=== PATIENT | male | born 1985 | race Hispanic/Latino ===

== ENCOUNTER 2016-05-18 18:31 | Emergency (ER) | payer OTHER ==
[~2016-05-18] VITALS: Ht 160 cm; Wt 100.0 kg
[2016-05-18 18:38] VITALS: BP 127/77; PULSE 63; RESP 12; O2SAT 100
[2016-05-18 20:05] VITALS: BP 127/77; PULSE 63; RESP 12; O2SAT 100
[2016-05-18] MEDS ORDERED: HYDROcodone-APAP 5-325 mg Tablet PO ONE (20:30)
--- NOTE | 2016-05-18 20:33 | ED.REPORT ---
HPI-Dental/Mouth Prob Date of Service May 18, 2016 ED Provider: Madhavi Prabhakar Nursing Notes Stated Complaint: TOOTH PAIN Chief Complaint: Dental Nursing Notes Reviewed: Yes Allergies: Coded Allergies: No Known Allergies (Unverified Allergy, Unknown, 03/07/16) Scheduled Penicillin V Potassium (Penicillin V Potassium) 500 Mg Tablet 500 MG PO BID Scheduled PRN Hydrocodone-Acetaminophen 5-325 mg (Hydrocodone-Acetaminophen 5-325 mg) 1 Each Tablet 1 TABLET PO Q4H PRN PRN For Pain Naproxen (Naproxen) 500 Mg Tab 500 MG PO BID PRN PRN For Pain General Time Seen by MD: 19:51 Chief Complaint Gum swelling, Tooth pain right upper incisor pain, infection to gum Hx Obtained From: Patient, Spouse Arrived By: Walk-in Onset Occurred: 3 days ago Context of Onset: Work-related (tooth fracture, repair not completed) Symptom Duration: Since onset Caused by: Blunt trauma Location: : Gum maxillary right: Tooth upper R lat incisor Quality: Aching Radiation: : Does not radiate Severity: Current: Moderate Severity: Maximum: Severe Associated with: Denies: Can't fully open mouth, Chills, Fever, Nausea Pertinent Negative: Pt denies other symptoms Exacerbated by: Heat, Cold, Chewing Pertinent Negative: Relieved by nothing Recent Healthcare: No recent doctor visit Similar Sx Previous: Yes Past Medical History Past Medical History Denies Past Surgical History Denies Smoking History Smoker Current Status UNK Social History Drug Use: Denies drug use Ambulatory Status Independent Review of Systems Basic Review of Systems Eyes: Vision NL, No discharge Cardiovascular: No palpitations Musculoskeletal: No extremity pain Hematologic: No bleeding, No bruising Skin: No bruising, No rash, No itch Allergy / Immune: No allergy Neurologic: NL mental status, No weakness, No numbness Psychiatric: Normal thought content Constitutional: Denies: Fatigue, Fever Ears / Nose / Throat: Reports: Toothache Respiratory: Denies: Non-productive cough GI: Denies: Abdominal pain Complete sys rev & neg: except as marked. Physical Exam Initial Vital Signs Vital Signs (First) Date Time Temp Pulse Resp B/P Pulse Ox O2 Delivery O2 Flow Rate FiO2 05/18/16 18:38 36.6 63 12 127/77 100 Room Air Initial VS: Reviewed General/Constitutional: Well-developed, Well-nourished Head / Eyes: Atraumatic, Normocephalic, PERRL Respiratory: No respiratory distress Lymphatic: No lymphadenopathy Extremities: No swelling, No tenderness Skin: Warm, Dry, No cyanosis Neurologic: Alert, Oriented, Nonfocal Psychiatric: Mood/affect normal, Behavior normal, Normal thought content ENT: Atraumatic, Airway patent, Mucous membranes moist, Pharynx NL, No pooling of secretions, No trismus, No facial swelling Dental / Gums: Positive: Dental abscess (right incisor buccal aspect gums, non draining), Gum swelling, Gum tenderness, Tooth fracture (tempory crown glued on) Neck: Atraumatic, Supple, No meningismus, Full range of motion, No adenopathy Discharge & Departure Primary Impression: Dental abscess Disposition: Home Discharge Condition Condition: Improved Patient Instructions: Dental Abscess (ED) Additional Instructions: Take your medications as prescribed. You should start to feel better in the next 3 to 5 days. It is important to find a dentist to work on your teeth or the abscess will come back. Please see your dentist in the next 2 weeks. Return to Urgent Care or the ER if you feel that you are getting worse or any other problems. Referrals: NOPCP (PCP) EDSupervising Provider for APC: Jae Ware MD, Lora L ARNP May 18, 2016 20:33
[2016-05-18] MEDS ORDERED: PENI500T PO (20:35)
[2016-05-18] MEDS ORDERED: HYDR-4003 PO (20:35)
[2016-05-18] MEDS ORDERED: NPR500T PO (20:35)
[2016-05-18 20:47] VITALS: BP 131/83; PULSE 67; RESP 20; O2SAT 100
== END 2016-05-18 20:54 | disposition home or self-care (01) ==
LOC: SED 18:31
DX: K04.7 Periapical abscess without sinus (principal); S02.5XXS Fracture of tooth (traumatic), sequela; W50.0XXS Accidental hit or strike by another person, sequela; Y92.59 Other trade areas as the place of occurrence of the external cause; Y93.9 Activity, unspecified; Y99.0 Civilian activity done for income or pay; F17.200 Nicotine dependence, unspecified, uncomplicated

== ENCOUNTER 2016-12-29 15:10 | Emergency (ER) | payer OTHER ==
[~2016-12-29] VITALS: Ht 160 cm; Wt 95.9 kg
[~2016-12-29 15:10] MED LIST: HYDR-4003 PO; NPR500T PO; PENI500T PO
[2016-12-29 15:35] VITALS: BP 154/83; PULSE 78; RESP 16; O2SAT 97
--- NOTE | 2016-12-29 17:10 | ED.REPORT ---
HPI-Extremity Problem Upper Date of Service Dec 29, 2016 ED Provider: Abbey Medeiros History of Present Illness: thumb pain for a month on the right, started with slight pain, went to [facility] 2 to 3 weeks ago. Given antibiotics but only took 5 or 6 pills. has not had ibuprofen today. Works in [employer]. Tdap 2 years ago. right hand dominant Nursing Notes Stated Complaint: RIGHT THUMB PAIN Chief Complaint: Extremity Trauma Nursing Notes Reviewed: Yes Allergies: Coded Allergies: No Known Allergies (Verified Allergy, Unknown, 12/29/16) Scheduled Penicillin V Potassium (Penicillin V Potassium) 500 Mg Tablet 500 MG PO BID Scheduled PRN Hydrocodone-Acetaminophen 5-325 mg (Hydrocodone-Acetaminophen 5-325 mg) 1 Each Tablet 1 TABLET PO Q4H PRN PRN For Pain Naproxen (Naproxen) 500 Mg Tab 500 MG PO BID PRN PRN For Pain General Time Seen by MD: 17:09 Chief Complaint Finger injury right 1 Hx Obtained From: Patient Onset Occurred: More than a week ago... (1 month) Symptom Duration: Since onset Past Medical History Past Medical History Denies Past Surgical History Denies Smoking History Smoker Current Status UNK Social History Drug Use: Denies drug use Ambulatory Status Independent Review of Systems Basic Review of Systems Eyes: Vision NL, No discharge GI: No abdominal pain, No anorexia, No nausea, No vomiting Psychiatric: Normal thought content Physical Exam Initial Vital Signs Vital Signs (First) Date Time Temp Pulse Resp B/P Pulse Ox O2 Delivery O2 Flow Rate FiO2 12/29/16 15:35 37.1 78 16 154/83 97 Room Air Initial VS: Reviewed, Vital signs normal General/Constitutional: Well-developed, Well-nourished Head / Eyes: Atraumatic, Normocephalic, PERRL ENT: Mucous membranes moist, Conjunctiva normal, No scleral icterus Neck: Supple, Non-tender, Full range of motion Respiratory: Breath sounds normal, Clear to auscultation, No respiratory distress Cardiovascular: Regular rate & rhythm, Heart sounds normal, Intact distal pulses Abdomen / GI: Soft, Non-tender, No guarding, No rebound, No distention Back: No CVA tenderness Lymphatic: No lymphadenopathy Lower Extremities: Vascular intact, Neuro intact, No swelling, No tenderness Skin: Warm, Dry, No cyanosis Neurologic: Alert, Oriented, Nonfocal Psychiatric: Mood/affect normal, Behavior normal, Normal thought content General/Constitutional: Awake, Alert, No acute distress, Well appearing, Well developed, Well hydrated, Well nourished, Cooperative, Not toxic appearing Respiratory / Chest: Atraumatic, Breath sounds NL, Breath sounds = bilat, No respiratory distress Cardiovascular: Heart rate NL, Regular rhythm, Heart sounds NL, No gallop Upper Extremity / MS: Atraumatic, Inspection NL, Full range of motion, No swelling, Non-tender right thumb has discoloration on top of nail. Patient reports tenderness there. Interpretation & Diagnostics Interpretation & Diagnostics: PROCEDURE: US EXTREMITY SONOGRAM LIMITED ([id number]) INDICATIONS: r thumb ? foreign object TECHNIQUE: Real-time scanning was performed of the right thumb, with image documentation. COMPARISON: None. FINDINGS: No focal fluid collection is identified. There is a 3 mm focus of increased echogenicity within the soft tissues. No definitive foreign body is identified. IMPRESSION: No focal fluid collection. 3 mm focus of increased echogenicity within the soft tissues. This could represent a small focus of air or potentially foreign body. Dictated by: Isa Washington M.D. on 12/29/2016 at 18:57 Approved by: Isa Washington M.D. on 12/29/2016 at 18:59 Lab Results Interpretation Result Diagram: 12/29/16 1833 12/29/16 1833 Test 12/29/16 18:33 White Blood Count 9.1th/mm3 (3.8-10.1) Red Blood Count 4.91mil/mm3 (4.40-5.80) Hemoglobin 15.1g/dL (13.8-17.2) Hematocrit 42.6% (41.0-50.0) Mean Corpuscular Volume 86.8fL (81-100) Mean Corpuscular Hemoglobin 30.8pg (27.0-35.0) Mean Corpuscular Hemoglobin Concent 35.4% (32.0-37.0) Red Cell Distribution Width 12.7% (12.3-15.4) Platelet Count 291bil/L (150-400) Neutrophils (%) (Auto) 64.3% (40-74) Lymphocytes (%) (Auto) 24.2% (14-46) Monocytes (%) (Auto) 8.9% (4-12) Eosinophils (%) (Auto) 2.0% (0-5) Basophils (%) (Auto) 0.2% (0-3) Sodium Level 137mEq/L (134-144) Potassium Level 4.1mEq/L (3.5-5.2) Chloride Level 101mEq/L (97-108) Carbon Dioxide Level 24mmol/L (18-29) Blood Urea Nitrogen 16mg/dL (6-20) Creatinine 0.52mg/dL (0.76-1.27) Estimat Glomerular Filtration Rate 196mL/min (>59) Glucose Level 95mg/dL (60-99) Calcium Level 9.4mg/dL (8.5-10.1) Total Bilirubin 0.2mg/dL (0.0-1.2) Aspartate Amino Transf (AST/SGOT) 21U/L (0-50) Alanine Aminotransferase (ALT/SGPT) 25U/L (0-44) Alkaline Phosphatase 69U/L (25-150) Total Protein 7.3g/dL (6.4-8.4) Albumin 4.5g/dL (3.4-5.0) Hold Travis Top Tube Received (Received) X-Ray Interpretation Xray Interpretation: ROCEDURE: X-RAY RIGHT HAND, MINIMUM THREE VIEWS ([id number]) INDICATIONS: ? splinter. TECHNIQUE: 3 views of the hand(s) acquired. COMPARISON: None. FINDINGS: Bones: No fractures or dislocations. Carpal bones are normally aligned. No suspicious bony lesions. Soft tissues: No suspicious soft tissue calcifications. IMPRESSION: No radiopaque foreign body. No visualized acute fracture or dislocation. However, if clinical concern and/or pain persist, short interval imaging followup in 7-10 days is recommended, as occult injury cannot be definitively excluded. Dictated by: Isa Washington M.D. on 12/29/2016 at 17:42 Approved by: Isa Washington M.D. on 12/29/2016 at 17:43 Procedures Procedure Notes: additional lidocaine is injected at tip of thumb. Good anthesia is achieved. Area of discoloration under nail is opened with a release of pus. The opening is extended to the base of the nail. normal tissue is observed on removing the nail. The thumb is washed and covered with bacitracin and xeroform. Patient tolerated procedure well. No foreign object observed. Incision & Drainage Abscess Time: 19:30 Procedure Performed by: [facility] pract Consent / Setup / Site Prep: Informed consent provided, Consent from patient , Stand sterile technique, Standard surgical scrub, Sterile drapes applied Location of Abscess: under right thumb nail Skin Preparation Agent: Betadine Local Anesthesia: Lidocaine 1%, 5cc, 27g needle Incised Abscess with Scalpel: #11 Pus Drained: Small, Purulent discharge Irrigation: Yes, Copious Post-Procedure / Complications: Dressing applied, No complications, Condition improved, Tolerated procedure well, Patient stable Re-Eval/Medical Decision Med Decision/Clinical Course 31 year old male presents for evualation of right thumb pain. Patient feels there erick have been a splinter. Pain has been ongoing for a month, increasing in the last 2 to 3 days. X-ray does not identify any foreign object. US does not show any foreign body, does show a small area of increased echogenicity. Nail is removed by the discoloration and there is a release of pus. The nail is then removed to the base but the tissue under the nail is normal. No additional discharge is able to be expressed. No sign of foreign body. No sign of felon. Discharge & Departure Impression: Primary Impression: Foreign body (FB) in soft tissue Disposition: Home Patient Instructions: Soft Tissue Foreign Body (ED) Additional Instructions: The x-ray did not show any foreign object. The US did not show any foreign object but it did show a small pocket of pus. The nail was opened and the was a release of pus. I did not see any foreign object but it likely dissolved over time. You are being started on antibiotics, please take them. Please follow with ortho. Call Dr. Hoang for follow up. Use ibuprofen and hydrocodone up to 2 times a day as needed for severe unrelenting pain. No work for 1 week. Note provided. I am sorry this happened. Referrals: [facility] (PCP) Perico Hoang DO EDSupervising Provider for APC: Gregorio Monaco DO copies to: Perico Hoang DO; [facility] Abbey Medeiros JACINTA Dec 29, 2016 17:10
--- NOTE | 2016-12-29 17:44 | DRSVH ---
PROCEDURE: X-RAY RIGHT HAND, MINIMUM THREE VIEWS ([id number]) INDICATIONS: ? splinter. TECHNIQUE: 3 views of the hand(s) acquired. COMPARISON: None. FINDINGS: Bones: No fractures or dislocations. Carpal bones are normally aligned. No suspicious bony lesions . Soft tissues: No suspicious soft tissue calcifications. IMPRESSION: No radiopaque foreign body. No visualized acute fracture or dislocation. However, if cli nical concern and/or pain persist, short interval imaging followup in 7-10 days is recommended, as oc cult injury cannot be definitively excluded. Dictated by: Isa Washington M.D. on 12/29/2016 at 17:42 Approved by: Isa Washington M.D. on 12/29/2016 at 17:43
[2016-12-29 18:36] LABS: BASOPHILS % (AUTO) 0.2 % (0-3); MONOCYTES % (AUTO) 8.9 % (4-12); Mean Corpuscular Hemoglobin 30.8 pg (27.0-35.0); Mean Corpuscular Volume 86.8 fL (81-100); NEUTROPHILS % (AUTO) 64.3 % (40-74); Platelet Count 291 bil/L (150-400)
--- NOTE | 2016-12-29 19:01 | DRSVH ---
PROCEDURE: US EXTREMITY SONOGRAM LIMITED ([id number]) INDICATIONS: r thumb ? foreign object TECHNIQUE: Real-time scanning was performed of the right thumb, with image documentation. COMPARISON: None. FINDINGS: No focal fluid collection is identified. There is a 3 mm focus of increased echogenicity wi thin the soft tissues. No definitive foreign body is identified. IMPRESSION: No focal fluid collection. 3 mm focus of increased echogenicity within the soft tissues. This could represent a small focus of air or potentially foreign body. Dictated by: Isa Washington M.D. on 12/29/2016 at 18:57 Approved by: Isa Washington M.D. on 12/29/2016 at 18:59
[2016-12-29] MEDS ORDERED: HYDROcodone-APAP 5-325 mg Tablet PO ONE (20:00)
[2016-12-29] MEDS ORDERED: _HYDROcodone/APAP 5-325 mg Tablet PO PRN (20:00)
[2016-12-29 20:49] VITALS: BP 131/88; PULSE 68; RESP 16; O2SAT 98
== END 2016-12-29 20:53 | disposition home or self-care (01) ==
LOC: SED 15:10
DX: S60.351A Superficial foreign body of right thumb, initial encounter (principal); X58.XXXA Exposure to other specified factors, initial encounter; Y93.89 Activity, other specified; Y92.89 Other specified places as the place of occurrence of the external cause; Y99.8 Other external cause status